=== PATIENT | male | born 1965 | race Two or more races ===

== ENCOUNTER 2016-12-08 07:37 | Emergency (ER) | payer SELFPAY ==
[2016-12-08 07:14] LABS: INFLUENZA A POS (NEG); INFLUENZA B NEG (NEG)
[~2016-12-08 07:37] MED LIST: FIORICET 50-321 EACH PO; NO MEDICATIONS
== END 2016-12-08 08:58 | disposition home or self-care (01) ==
LOC: SED 07:37
PROVIDERS: Emergency Medicine
DX: J10.1 Influenza due to other identified influenza virus with other respiratory manifestations (principal)
CPT/HCPCS: 87804; 96374; 99284; J2405